=== PATIENT | male | born 1965 | race Caucasian/White ===

== ENCOUNTER 2018-07-02 06:35 | Inpatient (IN) ==
[2018-07-02] MEDS ORDERED: DUONEB (A & A) ONE (06:48)
--- NOTE | 2018-07-02 06:52 | PROVIDER DOCUMENTATION ---
HPI-Respiratory General - General Stated Complaint: sob/cp Time Seen by Provider: 07/02/18 06:46 Source: patient, EMS Allergies/Adverse Reactions: Patient Allergies Allergy/AdvReac Type Severity Reaction Status Date / Time tetracycline Allergy HIVES Verified 07/02/18 06:53 Home Medications: Home Medication List Medication Instructions Recorded Confirmed Last Taken Type Albuterol Sulfate [Proventil Hfa] 2 puff IH Q4HR PRN #1 hfa.aer.ad 12/28/17 07/02/18 03/27/18 09:30 Rx Aspirin 81 mg PO DAILY #30 chewtab 02/01/18 07/02/18 03/27/18 09:30 Rx Iron Carbonyl/Ascorbic Acid 1 ea PO BID #30 tab 02/01/18 07/02/18 03/27/18 09:30 Rx [Icar-C] Multivitamins/Minerals [Centrum 1 ea PO DAILY #30 tab 02/01/18 07/02/18 03/27/18 09:30 Rx Silver] Carvedilol [Coreg] 25 mg PO BID #60 tab 07/05/18 Unknown Rx Clopidogrel Bisulfate [Plavix] 75 mg PO DAILY #30 tab 07/05/18 Unknown Rx Dicyclomine [Bentyl] 10 mg PO TID PRN PRN #90 cap 07/05/18 Unknown Rx Furosemide [Lasix] 20 mg PO DAILY #30 tab 07/05/18 Unknown Rx Gabapentin [Neurontin] 600 mg PO BID #60 tab 07/05/18 Unknown Rx Losartan [Cozaar] 25 mg PO DAILY #30 tab 07/05/18 Unknown Rx Nicotine Patch [Nicoderm Patch] 21 mg TD DAILY PRN PRN #42 07/05/18 Unknown Rx patch.td24 Pantoprazole Sodium 40 mg PO DAILY #30 tablet.dr 07/05/18 Unknown Rx Prednisone 10 mg PO DAILY #7 tab.ds.pk 07/05/18 Unknown Rx ROSUVAstatin [Crestor] 40 mg PO QHS #30 tab 07/05/18 Unknown Rx Tamsulosin [Flomax] 0.4 mg PO DAILY #30 cap 07/05/18 Unknown Rx - History of Present Illness-Resp Nature of Presenting Problem: Presents to the with complaints of acute onset of SOB this morning when he woke up. He states that he just got discharged from [facility] yesterday for COPD exacberation and he stayed there for 7 days. He is still an everyday smoker. He takes NC 3L all the time and he takes Lasix. He endorses some chest pain associated with this episode. He called EMS this morning. They were on their way to [place] when he starting showing PVCs on the monitor and had a short run of Vtach they decided to stop here. Onset/Duration: reports: just prior to arrival Review of Systems - Adult - REVIEW OF SYSTEMS - ADULT Constitutional: reports: vero Past History - Adult - PAST MEDICAL HISTORY-ADULT Review of Records: reports: Old Records Reviewed, Medications Reviewed Major Childhood Illnesses: reports: denies history Cardiovascular: reports: CAD, HTN, hyperlipidemia, [place] Respiratory: reports: asthma, COPD Gastrointestinal: reports: denies history Obstetrical/Gynecological: reports: denies history Genitourinary: reports: kidney disease Musculoskeletal: reports: denies history Neurological: reports: CVA, Seizures/Epilepsy Psychiatric: reports: denies history Endocrine/Immune: reports: denies history Other Conditions: reports: denies history - PRIOR SURGERIES/PROCEDURES Surgical/Procedure History: reports: CABG, orthopedic (extremity) (right hand) - IMMUNIZATION STATUS Childhood Immunizations: See Nurse Assessment Flu Vaccine: See Nurse Assessment - FAMILY HISTORY Family History: reviewed, not pertinent Physical Exam-General - CONSTITUTIONAL General Appearance: moderate distress - EYES Eyes: PERRL/EOMI - HEAD, EARS, NOSE, MOUTH & THROAT HENMT: normocephalic/atraumatic - NECK Neck: non-tender, full range of motion, supple - RESPIRATORY Respiratory: chest non-tender, respiratory distress, decreased breath sounds (moderate throughout), crackles (bilateral bases) - CARDIOVASCULAR Cardiovascular: regular rate, rhythm, tachycardia - GASTROINTESTINAL (ABDOMEN) Abdominal Exam: normal bowel sounds, non tender, soft - MUSCULOSKELETAL Back Exam: normal inspection Extremity: normal range of motion, non-tender - SKIN Integumentary: pallor - NEUROLOGIC Neurologic: grossly normal - PSYCHIATRIC Psych/Mental Status: normal mood/affect, oriented x 3 Progress - PLAN OF CARE/RESULTS Progress/Plan/Lab Results: Laboratory Results - last 24 hr 07/02/18 07/02/18 07/02/18 07:05 07:30 07:30 WBC 12.42 H RBC 3.60 L Hgb 11.4 L Hct 35.0 L MCV 97.2 MCH 31.7 H MCHC 32.6 L RDW Std Deviation 15.8 H Plt Count 142 MPV 10.4 Immature Gran % (Auto) 2.3 H Neut % (Auto) 62.8 Lymph % (Auto) 20.1 L [place] % (Auto) 14.0 H Eos % (Auto) 0.6 Baso % (Auto) 0.2 Immature Gran # (Auto) 0.29 H Neut # (Auto) 7.78 H Lymph # (Auto) 2.50 [place] # (Auto) 1.74 H Eos # (Auto) 0.08 Baso # (Auto) 0.03 PT INR PTT (Actin FS) Specimen Type ARTERIAL Sample Site L RADIAL pH 7.46 H pCO2 38 pO2 98 HCO3 27.3 H Base Excess 3.1 H Oxyhemoglobin 95.1 ABG O2 Sat (Calculated) 14.8 L ABG O2 Saturation 99.0 ABG Carboxyhemoglobin 2.90 H ABG Methemoglobin 1.0 Mario Test YES A-a O2 Difference 83.0 Total Hemoglobin 11.0 L Lactate 1.00 Liter Flow 3.0 Blood Gas Modality CANNULA FiO2 % 32.0 Sodium 138 Potassium 4.9 Chloride 104 Carbon Dioxide 23 L Anion Gap 11 BUN 54 H Creatinine 1.5 H Estimated GFR/1.73 m2 49 BUN/Creatinine Ratio 36 Glucose 87 Calculated Osmolality 290 Calcium 8.5 L Magnesium Total Bilirubin 0.17 L AST 26 ALT 45 H Alkaline Phosphatase 49 Troponin T [id number]-[id number] Pept Total Protein 5.2 L Albumin 3.2 L Globulin 2.0 Albumin/Globulin Ratio 1.6 Urine Source Urine Color Urine Turbidity Urine pH Ur Specific [place] Urine Protein Ur Glucose (Stick) Ur Ketones (Stick) Urine Blood Urine Nitrite Urine Bilirubin Urobilinogen Dipstick Urine Leukocytes Urine WBC (Auto) Urine RBC (Auto) U Epithel Cells (Auto) Urine Bacteria (Auto) Urine Opiates Screen Ur Oxycodone Screen Ur Methadone, Qual Ur Barbiturates Screen Ur Phencyclidine Scrn Ur Amphetamines Screen U Benzodiazepines Scrn Urine Cocaine Screen U Cannabinoids Screen 07/02/18 07/02/18 07/02/18 07:30 07:30 07:30 WBC RBC Hgb Hct MCV MCH MCHC RDW Std Deviation Plt Count MPV Immature Gran % (Auto) Neut % (Auto) Lymph % (Auto) [place] % (Auto) Eos % (Auto) Baso % (Auto) Immature Gran # (Auto) Neut # (Auto) Lymph # (Auto) [place] # (Auto) Eos # (Auto) Baso # (Auto) PT 12.6 INR 0.88 PTT (Actin FS) 21.0 L Specimen Type Sample Site pH pCO2 pO2 HCO3 Base Excess Oxyhemoglobin ABG O2 Sat (Calculated) ABG O2 Saturation ABG Carboxyhemoglobin ABG Methemoglobin Mario Test A-a O2 Difference Total Hemoglobin Lactate Liter Flow Blood Gas Modality FiO2 % Sodium Potassium Chloride Carbon Dioxide Anion Gap BUN Creatinine Estimated GFR/1.73 m2 BUN/Creatinine Ratio Glucose Calculated Osmolality Calcium Magnesium Total Bilirubin AST ALT Alkaline Phosphatase Troponin T 0.020 Wdx-F-Drfhcetnepd Pept 4619 H Total Protein Albumin Globulin Albumin/Globulin Ratio Urine Source Urine Color Urine Turbidity Urine pH Ur Specific [place] Urine Protein Ur Glucose (Stick) Ur Ketones (Stick) Urine Blood Urine Nitrite Urine Bilirubin Urobilinogen Dipstick Urine Leukocytes Urine WBC (Auto) Urine RBC (Auto) U Epithel Cells (Auto) Urine Bacteria (Auto) Urine Opiates Screen Ur Oxycodone Screen Ur Methadone, Qual Ur Barbiturates Screen Ur Phencyclidine Scrn Ur Amphetamines Screen U Benzodiazepines Scrn Urine Cocaine Screen U Cannabinoids Screen 07/02/18 07/02/18 07/02/18 07:30 08:00 08:00 WBC RBC Hgb Hct MCV MCH MCHC RDW Std Deviation Plt Count MPV Immature Gran % (Auto) Neut % (Auto) Lymph % (Auto) [place] % (Auto) Eos % (Auto) Baso % (Auto) Immature Gran # (Auto) Neut # (Auto) Lymph # (Auto) [place] # (Auto) Eos # (Auto) Baso # (Auto) PT INR PTT (Actin FS) Specimen Type Sample Site pH pCO2 pO2 HCO3 Base Excess Oxyhemoglobin ABG O2 Sat (Calculated) ABG O2 Saturation ABG Carboxyhemoglobin ABG Methemoglobin Mario Test A-a O2 Difference Total Hemoglobin Lactate Liter Flow Blood Gas Modality FiO2 % Sodium Potassium Chloride Carbon Dioxide Anion Gap BUN Creatinine Estimated GFR/1.73 m2 BUN/Creatinine Ratio Glucose Calculated Osmolality Calcium Magnesium 2.1 Total Bilirubin AST ALT Alkaline Phosphatase Troponin T Xhf-J-Rhpyihggqfz Pept Total Protein Albumin Globulin Albumin/Globulin Ratio Urine Source CLEAN CATCH Urine Color YELLOW Urine Turbidity CLEAR Urine pH 5.5 Ur Specific [place] 1.017 Urine Protein NEGATIVE Ur Glucose (Stick) NEGATIVE Ur Ketones (Stick) NEGATIVE Urine Blood NEGATIVE Urine Nitrite NEGATIVE Urine Bilirubin NEGATIVE Urobilinogen Dipstick NORMAL Urine Leukocytes NEGATIVE Urine WBC (Auto) <10 Urine RBC (Auto) <10 U Epithel Cells (Auto) <10 Urine Bacteria (Auto) NEGATIVE Urine Opiates Screen PRESUMPTIVE POSITIVE A Ur Oxycodone Screen NONE DETECTED Ur Methadone, Qual NONE DETECTED Ur Barbiturates Screen NONE DETECTED Ur Phencyclidine Scrn NONE DETECTED Ur Amphetamines Screen PRESUMPTIVE POSITIVE A U Benzodiazepines Scrn NONE DETECTED Urine Cocaine Screen NONE DETECTED U Cannabinoids Screen NONE DETECTED Orders Category Date Time Status Admit - [facility] Routine AdmDCTranf 07/02/18 13:09 Active Activity - Up with Assistance ORDERED Care 07/02/18 13:09 Active Apply Mechanical Device [QM] ORDERED Care 07/02/18 13:09 Active DVT/PE Risk Assess/Protocol [QM] ORDERED Care 07/02/18 13:09 Active Daily Weights 0600 Care 07/02/18 13:09 Active Intake and Output-Strict ORDERED Care 07/02/18 13:09 Active Nursing- Assist w/ IS as order ORDERED Care 07/02/18 13:09 Active Nursing- MD Consult Request ROUTINE Care 07/02/18 13:09 Completed Old records/chart to unit .From other facility Care 07/02/18 13:09 Active Saline Loc DIRECTED Care 07/02/18 13:09 Active Saline Loc DIRECTED Care 07/02/18 13:09 Completed Turn, Cough and Deep Breathe Q4HR.AWAKE Care 07/02/18 13:09 Active Vital Signs Order Q 4-HR ASSESS Care 07/02/18 13:09 Active Weight on Admission ORDERED Care 07/02/18 13:09 Active Z-Document. for Tele Applied ORDERED Care 07/02/18 13:09 Completed Physician/Provider Consults Routine Cons 07/02/18 13:09 Ordered Heart Healthy Diet Diet 07/02/18 09:06 Active CHEST-PORTABLE [RAD] Routine Exams 07/03/18 06:00 Ordered CHEST-PORTABLE [RAD] Stat Exams 07/02/18 07:50 Completed ABG [RESP] Routine Lab 07/02/18 07:05 Completed CBC WITH DIFF [HEME] Routine Lab 07/03/18 06:00 Ordered CBC WITH ELECTRONIC DIFF [HEME] Stat Lab 07/02/18 07:30 Completed COMPREHENSIVE METABOLIC PANEL [CHEM] Routine Lab 07/03/18 06:00 Ordered COMPREHENSIVE METABOLIC PANEL [CHEM] Stat Lab 07/02/18 07:30 Completed PRO B-NATRIURETIC PEPTIDE Routine Lab 07/03/18 06:00 Ordered PRO B-NATRIURETIC PEPTIDE Stat Lab 07/02/18 07:30 Completed PROTIME WITH INR [COAG] Stat Lab 07/02/18 07:30 Completed PTT [COAG] Stat Lab 07/02/18 07:30 Completed SPUTUM CULTURE WITH GRAM STAIN [RM] Routine Lab 07/02/18 13:09 Uncollected T4 Routine Lab 07/02/18 15:21 Completed TROPONIN T Lab 07/02/18 15:21 Completed TROPONIN T Lab 07/02/18 20:56 Completed TROPONIN T Stat Lab 07/02/18 07:30 Completed TSH Routine Lab 07/02/18 15:21 Completed URINALYSIS W/POSS RFLX CULT [URINALYSIS] Stat Lab 07/02/18 08:00 Completed URINE DRUG SCREEN Stat Lab 07/02/18 08:00 Completed VITAMIN B12 Routine Lab 07/02/18 15:21 Completed Acetaminophen [Tylenol] Med 07/02/18 13:09 Active 650 mg PO Q6H PRN PRN Albuterol 2.5MG/Ipratrop 0.5MG [Duoneb (A & A)] Med 07/02/18 13:09 Active 3 ml INH Q2H PRN PRN Albuterol 2.5MG/Ipratrop 0.5MG [Duoneb (A & A)] Med 07/02/18 15:30 Active 3 ml INH RTQ4H Albuterol 2.5MG/Ipratrop 0.5MG [Duoneb (A & A)] Med 07/02/18 06:48 Discontinued 9 ml .ROUTE .STK-MED ONE Albuterol 2.5MG/Ipratrop 0.5MG [Duoneb (A & A)] Med 07/02/18 06:54 Discontinued 9 ml INH NOW ONE Aspirin Med 07/03/18 09:00 Active 81 mg PO DAILY Budesonide [Pulmicort] Med 07/02/18 06:54 Discontinued 0.5 mg INH NOW ONE Carvedilol [Coreg] Med 07/02/18 21:00 Active 25 mg PO BID Clopidogrel [Plavix] Med 07/03/18 09:00 Active 75 mg PO DAILY Furosemide [Lasix] Med 07/02/18 07:04 Discontinued 60 mg IV NOW ONE Gabapentin [Neurontin] Med 07/02/18 21:00 Active 300 mg PO BID Isosorbide Mononitrate E.r. [Imdur] Med 07/03/18 09:00 Active 60 mg PO DAILY Levofloxacin 500 mg/D5w [Levaquin 500 mg/D5w] Med 07/02/18 13:09 Active 500 mg in 100 ml IV Q24H Methylprednisolone Sod Succ [Solu-Medrol] Med 07/02/18 06:54 Discontinued 125 mg IV NOW ONE Methylprednisolone Sod Succ [Solu-Medrol] Med 07/02/18 14:00 Active 40 mg IV Q8H Ondansetron [Zofran] Med 07/02/18 13:09 Active 4 mg IV Q4H PRN PRN ROSUVAstatin [Crestor] Med 07/03/18 09:00 Active 40 mg PO DAILY Aerosol Treatments Routine Ot 07/02/18 06:55 Completed Aerosol Treatments Routine Ot 07/02/18 13:09 Completed Aerosol Treatments Stat Ot 07/02/18 06:55 Completed Aerosol Treatments Stat Ot 07/02/18 13:09 Completed Incentive Spirometer Q4HR.AWAKE Ot 07/02/18 17:00 Completed Incentive Spirometer Q4HR.AWAKE Ot 07/02/18 21:00 Completed Incentive Spirometer Q4HR.AWAKE Ot 07/03/18 01:00 Completed Incentive Spirometer Q4HR.AWAKE Ot 07/03/18 05:00 Completed Incentive Spirometer Q4HR.AWAKE Ot 07/03/18 09:00 Completed Incentive Spirometer Q4HR.AWAKE Ot 07/03/18 13:00 Completed Oxygen Device Routine Ot 07/02/18 13:09 Completed Peak Flow BID Ot 07/02/18 21:00 Completed Peak Flow BID Ot 07/03/18 09:00 Completed Telemetry [OM.EQ] Routine Oth 07/02/18 13:09 Active EKG [EKG] Stat Ther 07/02/18 06:38 Draft Transfer/Admit Order [TRANSFER] Routine Transfer 07/02/18 11:54 Completed Result Diagrams: 07/04/18 10:00 07/03/18 06:41 - EKG 1 Time of EKG reading by physician:: 06:41 EKG Read and Signed by:: Luna Kirk EKG Interpretation (*Must complete 3 of following elements*): Abnormal Rate: 83 Rhythm: NSR QRS: PVC's ST Wave: non-specific ST changes - CHANGE OF SHIFT REPORT (ED Provider) 1 Report Given and Care Transferred to:: Dr Falcon Time of Transfer: 07:00 Items Pending: Labs, XRAY Results, Other (patient reevaluation) Departure - Departure Date of Disposition Decision: 07/02/18 Time of Disposition Decision: 06:00 DIAGNOSIS: COPD exacerbation Disposition: ADMITTED INPATIENT 09 Certified Medical Emergency: Emergent Condition: Stable - Critical Care Note This patient required my direct & personal management of CC.: Yes Total Time (mins): 35 Critical Care Statement: This patient required my direct personal management to treat or rule out processes, the absence of which, could potentiallly result in sudden, clinically significant life or limb threatening deterioration. Attestation - Physician/ RANDY Attestation Patient care was provided by Advanced Practice Provider:: No The physician spent face to face time with patient:: Yes Advanced Practice Provider documentation review:: Supervising physician onsite and consulted in the evaluation and care of this patient. The physician did have a face to face encounter with the patient.
[2018-07-02] MEDS ORDERED: SOLU-MEDROL IV ONE (06:54)
[2018-07-02] MEDS ORDERED: DUONEB (A & A) INH ONE (06:54)
[2018-07-02] MEDS ORDERED: PULMICORT INH ONE (06:54)
--- NOTE | 2018-07-02 06:56 | EKG Report ---
Test Performed on : 07/02/2018 06:40:51 AM Test Reason : CP Blood Pressure : / mmHG Vent. Rate : 083 BPM Atrial Rate : 083 BPM P-R Int : 136 ms QRS Dur : 108 ms QT Int : 390 ms P-R-T Axes : 088 034 077 degrees QTc Int : 458 ms Sinus rhythm. with occasional premature ventricular complexes. Cannot rule out Inferior infarct , age undetermined Abnormal ECG When compared with ECG of 15-APR-2018 13:27, premature ventricular complexes. are now present Minimal criteria for Inferior infarct are now present T wave inversion no longer evident in Inferior leads Nonspecific T wave abnormality has replaced inverted T waves in Lateral leads Unconfirmed Result
[2018-07-02] MEDS ORDERED: LASIX IV ONE (07:04)
[2018-07-02 07:15] LABS: ALLEN TEST YES; BE 3.1 mmoll (-3.0-3.0); BLOOD TYPE ARTERIAL; HCO3-(ACT) 27.3 mmoll (20.0-26.0); O2(CT) 14.8 mL/dL (15.0-23.0); O2HB 95.1 % (95.0-99.0); PCO2(98.6) 38 mmHg (35-45); PO2(98.6) 98 mmHg (60-100); SAMPLE BLOOD; pH(98.6) 7.46 (7.35-7.45)
[2018-07-02 07:19] LABS: MODALITY CANNULA
[2018-07-02 07:52] LABS: BASO# 0.03 X1000 (0.0-0.2); BASO% 0.2 % (0.0-0.8); EOS# 0.08 X1000 (0.0-0.7); EOS% 0.6 % (0.0-10.0); HEMOGLOBIN 11.4 g/dL (14.0-18.0); IMM GRAN# 0.29 X1000 (0.0-0.04); IMM GRAN% 2.3 % (0.0-0.5); LYMPH% 20.1 % (20.5-51.1); MCH 31.7 PG (27-31); MCHC 32.6 g/dL (33-37); MCV 97.2 FL (81-99); MONO# 1.74 X1000 (0.11-0.59); MPV 10.4 FL (7.4-10.4); NEUT# 7.78 X1000 (1.4-6.5); NEUT% 62.8 % (42.2-75.2); PLT 142 X1000 (130-400); RDW 15.8 % (11.5-14.5); WBC 12.42 X1000 (4.8-10.8)
[2018-07-02 08:02] LABS: INR 0.88; PROTIME 12.6 Seconds (11.0-16.0)
--- NOTE | 2018-07-02 08:17 | Diag Imaging Result Doc PS360 ---
CHEST-PORTABLE - 07/02/2018 INDICATION: resp fail COMPARISON: 04/15/2018 FINDINGS: Stable sternotomy changes and pacemaker. The lungs are clear. Heart size is normal. No pneumothorax or pleural effusion. IMPRESSION: Negative exam. Electronically signed by Clifford Elizondo 07/02/2018 8:15 AM
[2018-07-02 08:18] LABS: URINE SOURCE CLEAN CATCH
[2018-07-02 08:21] LABS: BILIRUBIN URINE NEGATIVE (NEGATIVE); BLOOD URINE NEGATIVE (NEGATIVE); COLOR YELLOW; GLUCOSE URINE NEGATIVE (NEGATIVE); KETONE URINE NEGATIVE (NEGATIVE); LEUKOCYTES URINE NEGATIVE (NEGATIVE); NITRITE URINE NEGATIVE (NEGATIVE); PH URINE 5.5; PROTEIN URINE NEGATIVE (NEGATIVE); SP GRAVITY URINE 1.017; TURBIDITY URINE CLEAR (CLEAR); UROBILINOGEN URINE NORMAL (NORMAL)
[2018-07-02 08:22] LABS: UR EPITHELIAL CELLS <10 /HPF (<10); URINE BACTERIA NEGATIVE /HPF; URINE RBC <10 /HPF (<10); URINE WBC <10 /HPF (<10)
[2018-07-02 08:32] LABS: ALB/GLOB RATIO 1.6; ALBUMIN 3.2 g/dL (3.5-5.0); CALCIUM 8.5 mg/dL (8.8-10.2); CREATININE 1.5 mg/dL (0.7-1.2); POTASSIUM 4.9 mmol/L (3.5-5.1); TOTAL BILIRUBIN 0.17 mg/dL (0.20-1.00); TOTAL PROTEIN 5.2 g/dL (6.3-8.3)
[2018-07-02 08:32] LABS: UR AMPHETAMINES QUAL PRESUMPTIVE POSITIVE (NONE DETECT); UR BARBITUATES QUAL NONE DETECTED (NONE DETECT); UR BENZODIAZEPIN QUAL NONE DETECTED (NONE DETECT); UR CANNABINOIDS QUAL NONE DETECTED (NONE DETECT); UR COCAINE QUAL NONE DETECTED (NONE DETECT); UR METHADONE QUAL NONE DETECTED (NONE DETECT); UR OPIATES QUAL PRESUMPTIVE POSITIVE (NONE DETECT); UR OXYCODONE QUAL NONE DETECTED (NONE DETECT); UR PCP QUAL NONE DETECTED (NONE DETECT)
[2018-07-02] MEDS ORDERED: DUONEB (A & A) INH PRN (13:09)
--- NOTE | 2018-07-02 14:41 | HISTORY AND PHYSICAL ---
HISTORY OF PRESENT ILLNESS: Mr. Nash presented on 07/02/2018. He had just gone to [facility] when he presented for the same shortness of breath. He has congestive heart failure with an ejection fraction of 20%, ischemic cardiomyopathy and underlying COPD with home O2 dependent, history of hypertension, history of hyperlipidemia. He states that since he left [facility] he still is very short of breath. He lives in a hotel in [place]. I do not think he has any healthcare at this time. No primary care physician. He denies fever or chills, just mainly shortness of breath, increased orthopnea, paroxysmal nocturnal dyspnea. He states he occasionally gets some chest tightness, but not having any at present time. PAST MEDICAL HISTORY: 1. Severe COPD with chronic hypoxemia, chronic hypercapnia, on home O2. 2. Hyperlipidemia. 3. Coronary artery disease. He had a recent heart catheterization here on 02/13/2018. The patient has essentially stable coronary arteries from previous catheterization. He has a known patent oblique marginal versus possible ramus branch. He has an occluded left anterior descending, which fills well via the WINTER. He essentially has an occluded circumflex after the 1st obtuse marginal. His right coronary was known to be nondominant, very small and severely diseased, so they opted to treat him medically. He has ejection fraction estimated by echo to be about 20% with global hypokinesis. 4. Hypertension. 5. Polyneuropathy in his feet. PAST SURGICAL HISTORY: He has had coronary artery bypass grafting in the past, right hand surgery, left knee surgery. ALLERGIES: Tetracycline which causes a rash. SOCIAL HISTORY: He was in [facility] for 10 years. When he got discharged, he started having more of these problems. Recently developed polyneuropathy in his feet as well. Denies history of alcohol or illicit drugs. FAMILY HISTORY: No history of coronary artery disease, but mother apparently had a history of heart trouble. Father had COPD and congestive heart failure as well. REVIEW OF SYSTEMS: General: He has had no weight gain or loss, no fever or chills. HEENT: Unremarkable. Respiratory: As above. Increased work of breathing, increased orthopnea, increased paroxysmal nocturnal dyspnea. Cardiovascular: He still has occasional pressure or tightness in his chest, but he has had a recent catheterization and he is going to need to be treated medically. 1. Hypertension, aware. 2. COPD with chronic O2. This is CO2 exacerbation. Combination of COPD and left ventricular systolic dysfunction or congestive heart failure. 3. Chronic kidney disease I think is stable. 4. Hyperlipidemia. 5. He apparently is still smoking and he denies any history of alcohol. However, he did use what he called shake and bake, which was similar to meth and I think he did reported he used heroin, too for a while. PHYSICAL EXAMINATION: VITALS: Afebrile, pulse 76, respirations 19, blood pressure 114/98. EYES: Pupils are equal. NECK: No distended neck veins that I can appreciate right now, but I think his CMP is above 10 cm water pressure from right atrium. No cervical or supraclavicular adenopathy. LUNGS: Decreased breath sounds both bases. Mild expiratory wheezing. Prolonged expiratory phase. CARDIOVASCULAR: Regular rhythm and rate without murmur or S3. PMI nondisplaced. ABDOMEN: Soft, nontender. I do not appreciate pedal edema at this time. LABORATORY: White count 12,420, hematocrit is 35, platelet count is 142,000. Sodium 138, potassium 4.9, chloride 104, BUN 54, and creatinine 1.5. Looking back at his creatinine, this is about baseline for him. He has had creatinine much higher, so I think his creatinine is probably at baseline. He has chronic kidney disease. HOME MEDICATIONS: He is on Proventil 2 puffs q.4 hours, Norvasc 5 mg b.i.d., amoxicillin 875 mg b.i.d., Coreg 25 mg b.i.d., Plavix 75 mg a day, Lasix 40 mg a day, Neurontin 300 mg b.i.d., Icar C 1 b.i.d., isosorbide mononitrate 60 mg a day, multivitamin 1 a day, naproxen 550 mg b.i.d., pantoprazole 40 mg b.i.d., prednisone 10 mg a day, Crestor 40 mg daily, Carafate 1 g q.6 hours, Flomax 0.4 mg daily. ASSESSMENT AND PLAN: 1. I think a combination of COPD and his congestive heart failure with some mild pulmonary venous hypertension. I think we need to continue to see if we can diurese a little bit. His chest x- ray was negative. No infiltrates. Heart size is normal. There is no pneumothorax at this time. We will continue bronchodilators, steroid inhaler, supplementary O2. Give him some guaifenesin to thin out the mucous. I do not see infection, but we can treat him for bronchitic organisms. 2. Chronic obstructive pulmonary disease exacerbation, chronic hypoxemia, hypercapnia. Continue supplemental O2, bronchodilators and steroid inhalers. 3. History of hypertension, aware. Continue present medication. 4. Peripheral neuropathy in his lower extremities, mainly involving his feet. 5. Chronic kidney disease which is stable. 6. Hyperlipidemia. 7. Chronic tobacco use. cc: Mario Gallardo MD
--- NOTE | 2018-07-02 15:17 | EKG Report ---
Test Performed on : 07/02/2018 3:07:02 PM Test Reason : chest pain Blood Pressure : / mmHG Vent. Rate : 107 BPM Atrial Rate : 107 BPM P-R Int : 134 ms QRS Dur : 096 ms QT Int : 336 ms P-R-T Axes : 074 006 106 degrees QTc Int : 448 ms Sinus tachycardia. with occasional premature ventricular complexes. Inferior infarct (cited on or before 02-JUL-2018) ST & T wave abnormality, consider lateral ischemia Abnormal ECG When compared with ECG of 02-JUL-2018 06:40, (Unconfirmed) No significant change was found Unconfirmed Result
[2018-07-02] MEDS: DUONEB (A & A) INH SCH ×3 (16:19→22:55)
[2018-07-02 16:30] LABS: TSH 0.28 uIUmL (0.27-4.20)
[2018-07-02 16:41] LABS: T4 6.66 ug/dL (4.60-12.00)
--- NOTE | 2018-07-02 18:08 | CARDIOLOGY CONSULTATION ---
DATE: 07/02/2018 REQUESTING PHYSICIAN: The hospitalist service. PRIMARY STICK FEEDER: Dr. Chase. HISTORY: Mr. Nash is a 52-year-old male, who apparently was just discharged a day ago or so from [facility] after staying there for about a week. His chief complaint was shortness of breath just walking a very short distance. The patient said that he had called the ambulance due to chest discomfort and dyspnea. The ambulance picked him up, and they were going to taken to [place]; however, en route, they noted ventricular arrhythmia and they decided to make a stop at [facility] and thus the patient has been admitted through our emergency department. The patient states that compared to how he felt the first day he was admitted to [facility] he is somewhat better, but not a whole lot better. His chest x-ray in the ER here shows no acute abnormalities. EKG shows sinus rhythm with inferior scar PVC. Blood work shows a proBNP level of 4619 pg/mL. BUN is 54, creatinine 1.5. White cell count 12,420, hemoglobin 11.4 g percent. PAST HISTORY: Positive for CHF systolic, ischemic cardiomyopathy. Recent heart catheterization done about 5 months ago showed patent mammary artery graft to LAD and occlusion of all the other vessels. He has a left main stenosis that supplies a circumflex system that is only comprised of 2 lateral vessels that appeared to be small. Ejection fraction is low. He has COPD, hypertension, dyslipidemia, chronic kidney disease, peripheral arterial disease, previous stroke, and history of GI bleeding. SURGICAL HISTORY: He had coronary bypass in 2002, mammary artery to LAD. He has had a stent to LAD. Circumflex has been occluded. He has an AICD implantation. Knee replacement, right hand surgery. SOCIAL HISTORY: He is . Disabled. He lives in a hotel in [place]. He is on disability. He has children. ALLERGIC: Tetracycline. HOME MEDICATIONS: Listed include albuterol, amoxicillin, atorvastatin, carvedilol, clopidogrel, furosemide, gabapentin, Naprosyn, Protonix, prednisone, rosuvastatin, sucralfate, tamsulosin. The patient does have tremendous financial constraints to purchase his medications. He is on home oxygen. REVIEW OF SYSTEMS: Other than what I have related is noncontributory. PHYSICAL EXAMINATION: Vital signs: Blood pressure is 93/64, pulse 105, temperature 98.1 degrees, respirations 18. General: Awake, alert. Chronically ill, in no distress. HEENT: Unremarkable. Chest: Diffusely diminished breath sounds with some rhonchi. Heart: Heart sounds are regular with some PVCs. No gallop or murmur. Abdomen: Soft. Extremities: Showed trace edema. Neurological: Follows commands. Moves 4 extremities. DIAGNOSTIC STUDIES: BUN 54, creatinine 1.5. Hemoglobin 11.4. Magnesium 2.1. Troponin 0.020. His urine toxicology screen drug screen shows opiates and amphetamines. IMPRESSION: 1. Patient with chest discomfort/dyspnea to minimal effort upon presentation. This is probably just his out of control systolic heart failure with inadequate medical therapy. He has been noncompliant. He has financial issues and can not afford his medications. 2. Severe chronic obstructive pulmonary disease (COPD). 3. Home oxygen dependent. 4. Previous bypass with progression of disease, ischemic cardiomyopathy. 5. Possible drug abuse, including opiates, nicotine and amphetamines. RECOMMENDATIONS: Patient is strongly encouraged to quit smoking and abstain from illicit drugs. He will be placed back on all of his medications. Once he is found euvolemic, he may be discharged to be followed by his primary physician. cc: Dorian Randhawa MD MTDD
[2018-07-02] MEDS: SOLU-MEDROL IV SCH ×3 (18:51→22:02)
[2018-07-02] MEDS: PULMICORT INH SCH (19:40)
[2018-07-02] MEDS: LEVAQUIN 500 MG/D5W 500 MG/100 ML IVPB IV SCH (20:06)
[2018-07-02] MEDS: COREG PO SCH (20:07)
[2018-07-02] MEDS: MUCINEX PO SCH (20:07)
[2018-07-02] MEDS: NEURONTIN PO SCH (20:07)
--- NOTE | 2018-07-02 22:50 | PULMONOLOGY CONSULTATION ---
DATE: 07/02/2018 REQUESTING PHYSICIAN: Mario Gallardo MD REASON FOR CONSULTATION: Chronic obstructive pulmonary disease exacerbation just discharged from [facility]. HISTORY OF PRESENT ILLNESS: Mr. Nash is a 52-year-old white male with a greater than 50 pack- year history for tobacco, severe COPD, severe coronary artery disease with ischemic cardiomyopathy, with ongoing tobacco use, who was recently discharged from [facility] with exacerbation of COPD/CHF by his report. After discharge home he did resume smoking. Drug screen in the emergency room was positive for amphetamines, which he denies. This morning he became short of breath and called 911 and was in route to [facility] when he developed PVCs and was diverted to this hospital. PAST MEDICAL HISTORY: 1. Severe chronic obstructive pulmonary disease. 2. Ischemic cardiomyopathy with ejection fraction of 20%. 3. Coronary artery disease status post bypass grafting with most recent cardiac catheterization 5 months ago revealing a patent mammary artery to the LAD with occlusion of all other vessels. 4. Dyslipidemia. 5. Chronic kidney disease. 6. Peripheral arterial disease. 7. CVA with residual left-sided weakness. 8. Status post AICD. 9. Status post knee replacement. 10. Polyneuropathy affecting his feet. SOCIAL HISTORY: Previously spent time in nursing home. Currently smoking greater than 1 pack per day. He reports with his myocardial infarction he stopped smoking for approximately 3 years but restarted smoking "due to a woman." Nursing intake notes that he used recreational drugs but none in the last 10 years. REVIEW OF SYSTEMS: Notable for chest tightness, dyspnea. PHYSICAL EXAMINATION: General: Reveals a chronically ill-appearing male who appears older than his stated age of 52. Vital Signs: BP 126/96, heart rate 74, respiratory rate 20, oxygen saturation 100% on 3 L per nasal cannula. HEENT: Pupils are equal and reactive. Oropharynx is clear. Neck: Supple. Chest: Reveals diminished breath sounds bilaterally with prolonged expiratory phase. Cardiac Exam: S1, S2. Abdomen: Soft and without hepatosplenomegaly. Extremities: Reveal trace to 1+ peripheral edema. LABORATORIES: Arterial blood gas reveals a pH of 7.46, pCO2 of 38, pO2 of 98 with a carboxyhemoglobin level of 3.9. White blood count 12.42, hemoglobin 11.4, platelet count 142,000. Toxicology positive for opiates and amphetamines. IMAGING: Chest x-ray reveals no evidence of acute disease. IMPRESSION: A 52-year-old with severe chronic obstructive pulmonary disease, severe coronary artery disease with ischemic cardiomyopathy, ongoing tobacco use, possible stimulant use, although he denies taking amphetamines or any other illicit drugs. RECOMMENDATIONS: 1. Continue oxygen at the time of discharge. 2. Continue bronchodilators at the time of discharge. He currently has a Proventil inhaler. Would recommend discharging patient on albuterol and Atrovent nebulizers to be used 4 times a day as necessary. 3. Initiate steroid taper at the time of discharge. 4. Strongly encourage patient to discontinue tobacco use, which may have contributed to this recurrent admission. 5. Encourage patient not to use illicit drugs. He currently denies use of illicit drugs, but amphetamines or any stimulant medications would likely cause cardiac decompensation with rapid return to the hospital. cc: Mazin Juárez MD
[2018-07-03] MEDS: DUONEB (A & A) INH SCH ×6 (03:33→23:20)
[2018-07-03] MEDS: SOLU-MEDROL IV SCH (04:43)
[2018-07-03 07:32] LABS: ALB/GLOB RATIO 1.8; CALCIUM 8.4 mg/dL (8.8-10.2); CREATININE 1.6 mg/dL (0.7-1.2); TOTAL BILIRUBIN 0.19 mg/dL (0.20-1.00); TOTAL PROTEIN 4.7 g/dL (6.3-8.3)
[2018-07-03 07:33] LABS: BASO# 0.01 X1000 (0.0-0.2); BASO% 0.1 % (0.0-0.8); HEMOGLOBIN 11.4 g/dL (14.0-18.0); IMM GRAN# 0.25 X1000 (0.0-0.04); LYMPH# 0.63 X1000 (1.2-3.4); LYMPH% 5.1 % (20.5-51.1); MCH 31.8 PG (27-31); MCHC 32.6 g/dL (33-37); MCV 97.8 FL (81-99); MONO# 1.97 X1000 (0.11-0.59); MONO% 15.9 % (1.7-9.3); MPV 10.1 FL (7.4-10.4); NEUT# 9.53 X1000 (1.4-6.5); NEUT% 76.9 % (42.2-75.2); PLT 142 X1000 (130-400); RBC 3.58 XMIL (4.7-6.1); RDW 16.3 % (11.5-14.5); WBC 12.39 X1000 (4.8-10.8)
[2018-07-03] MEDS: PULMICORT INH SCH ×2 (07:35→19:42)
--- NOTE | 2018-07-03 07:37 | Diag Imaging Result Doc PS360 ---
EXAM: CHEST-PORTABLE INDICATION: short of breath TECHNIQUE: One view COMPARISON: 07/02/2018 FINDINGS: The lungs are grossly clear. No new consolidation is identified. Cardiac silhouette is stable. IMPRESSION: Stable chest with no definite acute pathology. Electronically signed by Gilbert Bowser 07/03/2018 7:35 AM
[2018-07-03 07:46] LABS: BANDS 3 % (0-1); LYMPHS 5 % (21-51); MONO 16 % (1-9); SEGS 76 % (42-75)
[2018-07-03] MEDS: CRESTOR PO SCH (08:06)
[2018-07-03] MEDS: ASPIRIN PO SCH (08:06)
[2018-07-03] MEDS: MUCINEX PO SCH ×2 (08:06→20:34)
[2018-07-03] MEDS: PLAVIX PO SCH (08:06)
[2018-07-03] MEDS: IMDUR PO SCH (08:06)
[2018-07-03] MEDS: NEURONTIN PO SCH ×2 (08:06→20:35)
[2018-07-03] MEDS: COREG PO SCH ×2 (08:06→20:34)
[2018-07-03] MEDS: PREDNISONE PO SCH (08:29)
--- NOTE | 2018-07-03 09:24 | ECHO REPORT ---
ORDER DATE: 07/02/2018 MEASUREMENTS: Left ventricular end-diastolic 5.7, septal thickness 1.2, posterior wall thickness 1.2, aortic root 3.7, left atrium 3.2. SUMMARY: 1. Fair quality study. 2. Intravenous echo contrast agent Definity utilized to enhance endocardial definition. 3. Aortic valve is trileaflet and opens normally on 2-dimensional images. Peak gradient across aortic valve is less than 10 mmHg. Mitral, tricuspid and pulmonic valves are without evidence of structural abnormality with trace tricuspid regurgitation and mild pulmonic insufficiency. The aortic root is normal size. 4. Normal left ventricular chamber size with mild concentric left hypertrophy is demonstrated. Estimated left ventricular ejection fraction approximately 40% in the setting of global hypokinesis. Left atrium, right atrium, right ventricle are normal in size with grossly preserved right ventricular systolic function. Pacemaker lead appears present in the right ventricle. 5. No pericardial effusion. 6. Appearance of inferior vena cava suggests normal central venous pressure. cc: Angel Chase MD
[2018-07-03] MEDS ORDERED: LASIX IV ONE (13:19)
--- NOTE | 2018-07-03 13:56 | PROGRESS NOTE ---
DATE: 07/03/2018 INTERVAL HISTORY: Patient with no dyspnea at rest. Still reports dyspnea and fatigue with exertion. Excellent O2 saturations. He reports compliance with some of his medications prior to admission but denies having seen a doctor in quite some time, so I am uncertain where he would have been getting his prescriptions from. No fever, chills, chest pain, diaphoresis. REVIEW OF SYSTEMS: A 12 point review of systems is negative except as per interval history. LABS: WBC 12.39, hemoglobin 11.4, hematocrit 35.0, platelets 142,000. Sodium 134, potassium 5, BUN 51, creatinine 1.6, glucose 143. BNP 4032. Urine drug screen, opiates and amphetamines. VITAL SIGNS: T-max 98.3 degrees, pulse 94, respirations 18, blood pressure of 123/79, O2 saturation 99% on 1 L by nasal cannula. PHYSICAL EXAMINATION: General: No acute distress. Vitals: As above. HEENT: Normocephalic, atraumatic. Moist mucous membranes. No cervical adenopathy. Cardiovascular: Regular rate and rhythm. No murmurs noted. ICD in the left upper chest. Pulmonary: Minimal bibasilar crackles, slightly decreased breath sounds throughout but otherwise clear to auscultation bilaterally. Abdomen: Soft, nontender, nondistended. Bowel sounds positive. Extremities: Peripheral pulses intact. No clubbing, cyanosis, or edema. Neurologic: Cranial nerves grossly intact. No focal deficits identified. Psychiatric: Normal mood and affect. Awake, alert, and oriented x3. Skin: No new rashes or lesions identified. ASSESSMENT AND PLAN: 1. Dyspnea: Likely a combination of minimal decompensation of both his congestive heart failure and chronic obstructive pulmonary disease. Symptoms are somewhat improved. Oxygen requirements, essentially none at this point. We will wean steroids down. Continue diuresis for one more day. Suspect he will be able to be discharged tomorrow. The importance of compliance with medication was emphasized. We will restart the patient on losartan. The patient states he was previously on lisinopril, was taken off because of cough, and never restarted anything else. 2. Possible viral upper respiratory tract infection, treating symptomatically. 3. Obstructive sleep apnea. Patient evaluated for CPAP when he can. 4. Coronary artery disease. Continue home aspirin and Plavix. 5. Hyperlipidemia. Continue statin. 6. Hypertension, stable on current medication. Adding losartan as above. 7. Chronic kidney disease 3. Creatinine stable. 8. Tobacco abuse. Patient strongly counseled on cessation. 9. Hyponatremia, mild. We will monitor. [facility] CENTERDaniel
[2018-07-03] MEDS: TYLENOL PO PRN ×2 (14:08→23:57)
[2018-07-03] MEDS: ZOFRAN IV PRN ×2 (16:42→20:34)
[2018-07-03] MEDS: LEVAQUIN 500 MG/D5W 500 MG/100 ML IVPB IV SCH (20:45)
[2018-07-04] MEDS: DUONEB (A & A) INH SCH ×6 (03:34→23:21)
[2018-07-04] MEDS: ZOFRAN IV PRN ×3 (04:26→21:42)
[2018-07-04] MEDS: PULMICORT INH SCH ×2 (07:59→19:27)
[2018-07-04] MEDS: MUCINEX PO SCH ×2 (08:58→21:42)
[2018-07-04] MEDS: NEURONTIN PO SCH ×2 (08:58→21:42)
[2018-07-04] MEDS: COREG PO SCH ×3 (08:59→21:45)
[2018-07-04] MEDS: TYLENOL PO PRN ×3 (08:59→22:56)
[2018-07-04] MEDS: CRESTOR PO SCH (08:59)
[2018-07-04] MEDS: PLAVIX PO SCH (08:59)
[2018-07-04] MEDS: PREDNISONE PO SCH (08:59)
[2018-07-04] MEDS: COZAAR PO SCH (08:59)
[2018-07-04] MEDS: IMDUR PO SCH (08:59)
[2018-07-04] MEDS: ASPIRIN PO SCH (08:59)
[2018-07-04 10:21] LABS: BASO# 0.02 X1000 (0.0-0.2); BASO% 0.3 % (0.0-0.8); HEMATOCRIT 36.2 % (42.0-52.0); HEMOGLOBIN 11.9 g/dL (14.0-18.0); IMM GRAN# 0.38 X1000 (0.0-0.04); IMM GRAN% 6.4 % (0.0-0.5); LYMPH# 0.64 X1000 (1.2-3.4); LYMPH% 10.8 % (20.5-51.1); MCH 32.3 PG (27-31); MCHC 32.9 g/dL (33-37); MCV 98.4 FL (81-99); MONO# 0.74 X1000 (0.11-0.59); MONO% 12.5 % (1.7-9.3); MPV 9.7 FL (7.4-10.4); NEUT# 4.12 X1000 (1.4-6.5); PLT 98 X1000 (130-400); RBC 3.68 XMIL (4.7-6.1); RDW 16.6 % (11.5-14.5)
[2018-07-04 10:40] LABS: BANDS 14 % (0-1); LYMPHS 12 % (21-51); MONO 2 % (1-9); NRBC 1 % (0-0); SEGS 62 % (42-75)
--- NOTE | 2018-07-04 11:04 | PROGRESS NOTE ---
DATE: 07/04/2018 SUBJECTIVE: This morning, Mr. Nash is complaining of some abdominal cramping and multiple loose stools early this morning. He does report some very minimal amount of bright red blood after wiping. He denies any nausea or vomiting and no fever. His breathing is improving subtly, O2 saturation noted to be 98% on room air after he went to the bathroom. Otherwise, there were no acute events overnight. He is resting in bed comfortably without distress noted. OBJECTIVE: PHYSICAL EXAMINATION: VITAL SIGNS: Blood pressure is 117/72, heart rate is 94, respiratory rate is 18, O2 saturation 98% on room air, temperature is 98.2. GENERAL: Chronically ill and disheveled-appearing 52-year-old male lying in the hospital bed in no acute distress. HEENT: Head is atraumatic and normocephalic. His pupils are equal, round, and reactive to light. Mucous membranes moist. NECK: Trachea is midline. Neck supple. There is no cervical lymphadenopathy. CHEST: Clear to auscultation with decreased breath sounds bilaterally. CARDIOVASCULAR: Regular rate and rhythm. No murmurs noted. ICD to the left upper chest. ABDOMEN: Soft, nondistended. Bowel sounds active. EXTREMITIES: Peripheral pulses 1+. No clubbing, cyanosis, or edema. NEUROLOGIC: No focal deficits noted. Cranial nerves grossly intact. SKIN: No new rashes or lesions identified. ASSESSMENT AND PLAN: 1. Dyspnea: Improving daily, likely combination of congestive heart failure and chronic obstructive pulmonary disease. He is actually doing quite well without oxygen. Will continue steroid weaning and diuretics. He appears to be doing well on his losartan. 2. Coronary artery disease, stable, continue aspirin and Plavix. 3. Obstructive sleep apnea, stable. However, he needs to be evaluated outpatient with a sleep study formally and put on CPAP. 4. Hyperlipidemia, stable, continue statin. 5. Hypertension, stable, losartan tolerated well. 6. Chronic kidney disease, stable. 7. Diarrhea/loose stools with minimal bright red blood: Per patient reports. We have added fecal occult blood and we are rechecking labs this morning. Will monitor closely. 8. Nicotine dependence: The patient has been advised to quit smoking. Will continue nicotine cessation education. DISPOSITION: We are checking stool studies for C. difficile and for blood. If negative, he can likely go home either later this afternoon or tomorrow, if positive will treat accordingly. Dictated by TAO Duncan for Shantanu Scott MD cc: TAO Duncan Agree with above. The following is my own face to face assessment. Patient wheezing nearly resolved. abd nontender and bowel sounds normoactive. will check stool studies and if negative then will hopefully be able to discharge tomorrow. [facility]
[2018-07-04] MEDS: FLOMAX PO SCH (11:40)
[2018-07-04] MEDS: LASIX PO SCH (11:40)
[2018-07-04] MEDS: NICODERM PATCH TD PRN (14:21)
--- NOTE | 2018-07-04 21:59 | PULMONOLOGY PROGRESS NOTE ---
DATE: 07/04/2018 SUBJECTIVE: The patient reports he has increased sputum production, but is improving with mucolytics. He denies shortness of breath at rest. OBJECTIVE: Blood pressure 103/82, heart rate 91, respiratory rate 18, oxygen saturation 95% on 3 L per nasal cannula. HEENT: Pupils are equal and reactive. Oropharynx is clear. Neck is supple. Chest reveals markedly diminished breath sounds bilaterally with prolonged expiratory phase. Minimal wheezing present distally. Cardiac exam: S1, S2. Abdomen is soft. Extremities reveal minimal to trace edema. LABORATORY DATA: No new chemistries or CBC. IMPRESSION: A 52-year-old with: 1. Severe chronic obstructive pulmonary disease. 2. Severe coronary artery disease with ischemic cardiomyopathy. 3. Ongoing tobacco use. 4. Possible amphetamine use, which the patient denies. 5. Hypoxemic respiratory failure. RECOMMENDATIONS: 1. Continue bronchodilators as outlined in the initial consultation. 2. Continue oxygen at discharge if his saturation is less than 90% on room air. 3. Strongly encourage the patient to discontinue all non-prescribed drugs. cc: Mazin Juárez MD
[2018-07-05] MEDS: ZOFRAN IV PRN ×3 (02:38→13:22)
[2018-07-05] MEDS: DUONEB (A & A) INH SCH ×3 (03:24→11:25)
[2018-07-05] MEDS: PULMICORT INH SCH (07:42)
[2018-07-05] MEDS: FLOMAX PO SCH (08:24)
[2018-07-05] MEDS: CRESTOR PO SCH (08:25)
[2018-07-05] MEDS: ASPIRIN PO SCH (08:25)
[2018-07-05] MEDS: PLAVIX PO SCH (08:25)
[2018-07-05] MEDS: PREDNISONE PO SCH (08:25)
[2018-07-05] MEDS: COREG PO SCH (08:25)
[2018-07-05] MEDS: IMDUR PO SCH (08:25)
[2018-07-05] MEDS: COZAAR PO SCH (08:25)
[2018-07-05] MEDS: NEURONTIN PO SCH (08:26)
[2018-07-05] MEDS: LASIX PO SCH (08:26)
[2018-07-05] MEDS: MUCINEX PO SCH (08:26)
[2018-07-05] MEDS: NICODERM PATCH TD PRN (09:27)
[2018-07-05 11:15] VITALS: BP 84/56
[2018-07-05] MEDS ORDERED: PNEUMOVAX 23 IM ONE (14:13)
--- NOTE | 2018-07-05 22:19 | DISCHARGE SUMMARY ---
ADMISSION DATE: 07/02/2018 DISCHARGE DATE: 07/05/2018 DIAGNOSTIC DATA: Chest x-ray x2 with no acute process. DISCHARGE DIAGNOSES: 1. Chronic obstructive pulmonary disease with mild exacerbation. 2. Chronic systolic congestive heart failure. 3. Coronary artery disease. 4. Hypertension. 5. Tobacco. 6. Chronic kidney disease stage 3. 7. Hyponatremia. 8. Likely irritable bowel syndrome. HOSPITAL COURSE: The patient is a 52-year-old male with history of COPD, reportedly on oxygen at home; systolic congestive heart failure, with EF of 20%; coronary artery disease; hypertension; hyperlipidemia. He had recent hospitalization at [facility]. Reported he had continued shortness of breath. On initial evaluation he was noted to have no significant hypoxia, but was having some dyspnea and wheezing. He was thought to have some mild COPD exacerbation and possibly very slight volume overload, but BNP was similar to his previous baselines at 4000 and chest x-ray did not show any significant pulmonary edema. He was treated with steroids, nebulizer treatments and gentle diuresis. His home medications, which he had been largely noncompliant with, were restarted. We attempted to start him on losartan. He had previously been on lisinopril but stopped that because of cough; however, he developed mildly decreased blood pressure and some slight orthostatic symptoms with losartan. This was held briefly. After further review, it was elected to stop his Imdur and restart the losartan. The patient also complained of diarrhea, but after stool sample was ordered no further bowel movements were noted. The patient stated this has been an intermittent issue for quite some time. It was thought he might have an aspect of IBS, so Bentyl was started. The patient was counseled on the importance of medication compliance and tobacco cessation. On the day of discharge, the patient was saturating well on room air, breathing easily. His last labs had showed no leukocytosis, minimal anemia with a hemoglobin of 11.9, and chemistries showed stable CKD 3. DISCHARGE VITAL SIGNS: Temperature 98.1 degrees, pulse 88, respirations 22, O2 saturation 100% on room air. DISCHARGE DIET: Cardiac. DISCHARGE MEDICATIONS: Lasix 20 mg p.o. daily; atorvastatin 40 mg p.o. at bedtime; albuterol inhaler q.4 hours p.r.n.; aspirin 81 mg p.o. daily; Bentyl 10 mg p.o. t.i.d.; Coreg 25 mg p.o. b.i.d.; losartan 25 mg p.o. daily; Flomax 0.4 mg p.o. daily; gabapentin 600 mg p.o. b.i.d.; nicotine patch 21 mg daily; Protonix 40 mg p.o. daily; Plavix 75 mg p.o. daily; prednisone taper. FOLLOWUP AND PLAN: The patient is discharged home on adjusted CHF medications, Lasix, Coreg and losartan. Short steroid taper to finish treatment of mild COPD exacerbation. Follow up with PCP and Cardiology. Greater than 30 minutes spent arranging discharge and counseling the patient.
== END 2018-07-05 15:18 | disposition home or self-care (01) | DRG 291 ==
LOC: SUPCPDRO → ED 06:35 → SUATTDRO 12:37 → 3N 12:37
PROVIDERS: ATTEND Internal Medicine
CPT/HCPCS: 71010; 71045; 80053; 80101; 80301; 80307; 80324; 80345; 80346; 80353; 80358; 80361; 80365; 81001; 82607; 82805; 83735; 83880; 83992; 84436; 84443; 84484; 85025; 85610; 85730; 90732; 93005; 93010; 93306; 94640; 94761; 94799; 96374; 96375; 99285; A9270; C8929; G0431; G0434; G0479; G0480; J1940; J1956; J2405; J2930; J7506; J7512; Q9957

== ENCOUNTER 2018-09-02 14:00 | Observation (INO) ==
[2018-09-02] MEDS ORDERED: ASPIRIN PO ONE (14:31)
[2018-09-02] MEDS ORDERED: ASPIRIN PR ONE (14:31)
--- NOTE | 2018-09-02 14:54 | Diag Imaging Result Doc PS360 ---
EXAM: CHEST-2 VIEWS 09/02/2018 HISTORY: chest pain TECHNIQUE: AP and lateral chest COMMENT: There are sternotomy wires and anterior mediastinal surgical clips. There is a pacemaker on the left. There is some minimal platelike opacity in the area of the lingula which may be due to fibrosis. This is not changed significantly since 07/03/2018. There may be COPD. IMPRESSION: No evidence of acute disease. Electronically signed by Dakota Mittal 09/02/2018 2:52 PM
[2018-09-02] MEDS ORDERED: NS 1,000 ML IV ONE (14:57)
[2018-09-02] MEDS ORDERED: ZOFRAN IV ONE (14:57)
[2018-09-02] MEDS ORDERED: MORPHINE IV ONE (14:57)
[2018-09-02 15:08] LABS: BASO# 0.09 X1000 (0.0-0.2); BASO% 0.8 % (0.0-0.8); EOS# 0.69 X1000 (0.0-0.7); EOS% 5.9 % (0.0-10.0); HEMATOCRIT 38.4 % (42.0-52.0); HEMOGLOBIN 12.6 g/dL (14.0-18.0); IMM GRAN# 0.05 X1000 (0.0-0.04); IMM GRAN% 0.4 % (0.0-0.5); LYMPH# 1.88 X1000 (1.2-3.4); LYMPH% 16.1 % (20.5-51.1); MCH 31.7 PG (27-31); MCHC 32.8 g/dL (33-37); MCV 96.7 FL (81-99); MONO# 1.32 X1000 (0.11-0.59); MONO% 11.3 % (1.7-9.3); MPV 10.4 FL (7.4-10.4); NEUT# 7.64 X1000 (1.4-6.5); NEUT% 65.5 % (42.2-75.2); PLT 278 X1000 (130-400); RBC 3.97 XMIL (4.7-6.1); RDW 14.6 % (11.5-14.5); WBC 11.67 X1000 (4.8-10.8)
[2018-09-02 15:13] LABS: INR 0.89; PROTIME 12.8 Seconds (11.0-16.0)
[2018-09-02 15:14] LABS: PTT 29.7 Seconds (22.3-41.8)
[2018-09-02 15:34] LABS: ALB/GLOB RATIO 1.6; ALBUMIN 4.2 g/dL (3.5-5.0); CALCIUM 9.3 mg/dL (8.8-10.2); CREATININE 2.6 mg/dL (0.7-1.2); POTASSIUM 4.2 mmol/L (3.5-5.1); TOTAL BILIRUBIN 0.3 mg/dL (0.20-1.00); TOTAL PROTEIN 6.9 g/dL (6.3-8.3)
--- NOTE | 2018-09-02 18:13 | PROVIDER DOCUMENTATION ---
This chart was entered by Radha Sales Scribe, acting as scribe for Sunny Maldonado DO. HPI-Cardiac General - General Chief Complaint: Heart Alert Stated Complaint: DEFIBRILLATOR FIRED, DIZZY Time Seen by Provider: 09/02/18 14:38 Source: patient Allergies/Adverse Reactions: Patient Allergies Allergy/AdvReac Type Severity Reaction Status Date / Time tetracycline Allergy HIVES Verified 07/02/18 06:53 Home Medications: Home Medication List Medication Instructions Recorded Confirmed Last Taken Type Albuterol Sulfate [Proventil Hfa] 2 puff IH Q4HR PRN #1 hfa.aer.ad 12/28/17 07/02/18 03/27/18 09:30 Rx Aspirin 81 mg PO DAILY #30 chewtab 02/01/18 07/02/18 03/27/18 09:30 Rx Iron Carbonyl/Ascorbic Acid 1 ea PO BID #30 tab 02/01/18 07/02/18 03/27/18 09:30 Rx [Icar-C] Multivitamins/Minerals [Centrum 1 ea PO DAILY #30 tab 02/01/18 07/02/18 03/27/18 09:30 Rx Silver] Carvedilol [Coreg] 25 mg PO BID #60 tab 07/05/18 Unknown Rx Clopidogrel Bisulfate [Plavix] 75 mg PO DAILY #30 tab 07/05/18 Unknown Rx Dicyclomine [Bentyl] 10 mg PO TID PRN PRN #90 cap 07/05/18 Unknown Rx Furosemide [Lasix] 20 mg PO DAILY #30 tab 07/05/18 Unknown Rx Gabapentin [Neurontin] 600 mg PO BID #60 tab 07/05/18 Unknown Rx Losartan [Cozaar] 25 mg PO DAILY #30 tab 07/05/18 Unknown Rx Nicotine Patch [Nicoderm Patch] 21 mg TD DAILY PRN PRN #42 07/05/18 Unknown Rx patch.td24 Pantoprazole Sodium 40 mg PO DAILY #30 tablet.dr 07/05/18 Unknown Rx Prednisone 10 mg PO DAILY #7 tab.ds.pk 07/05/18 Unknown Rx ROSUVAstatin [Crestor] 40 mg PO QHS #30 tab 07/05/18 Unknown Rx Tamsulosin [Flomax] 0.4 mg PO DAILY #30 cap 07/05/18 Unknown Rx - History of Present Illness-Cardiac Nature of Presenting Problem: 52 year old male presents to the ER via EMS after defibrillator fired this morning. Pt states immediately after the pain was so intense he vomited and has been in pain since. Pt states he has left side weakness due to stroke and is having difficulty speaking due to nervousness. Denies any other symptoms. Location: reports: central Quality of Pain: reports: sharp, stabbing Onset/Duration: this morning Timing: still present Context/Activities at Onset: reports: other (defibrillator fired) Prior Chest Pain/Cardiac Workup: reports: cardiac cath Associated Symptoms: reports: back pain, nausea, shortness of breath, vomiting Review of Systems - Adult - REVIEW OF SYSTEMS - ADULT Constitutional: denies: chills, fever Eyes: reports: no symptoms reported Ears, Nose, Mouth & Throat: reports: no symptoms reported Cardiovascular: reports: chest pain, palpitations Respiratory: reports: shortness of breath, wheezing Gastrointestinal: reports: nausea, vomiting Genitourinary: reports: no symptoms reported Musculoskeletal: reports: no symptoms reported Integumentary: reports: no symptoms reported Neurological: reports: no symptoms reported Psychiatric: reports: no symptoms reported Endocrine: reports: no symptoms reported Hematologic/Lymphatic: reports: no symptoms reported Allergic/Immunologic: reports: no symptoms reported All Other Systems: Reviewed and Negative Past History - Adult - PAST MEDICAL HISTORY-ADULT Review of Records: reports: Nursing Assessment Review, Medications Reviewed Major Childhood Illnesses: reports: denies history Cardiovascular: reports: CAD, HTN, hyperlipidemia, [place] Respiratory: reports: asthma, COPD Gastrointestinal: reports: denies history Obstetrical/Gynecological: reports: denies history Genitourinary: reports: kidney disease Musculoskeletal: reports: denies history Neurological: reports: CVA, Seizures/Epilepsy Psychiatric: reports: denies history Endocrine/Immune: reports: denies history Other Conditions: reports: denies history - PRIOR SURGERIES/PROCEDURES Surgical/Procedure History: reports: CABG, orthopedic (extremity) (right hand) - IMMUNIZATION STATUS Childhood Immunizations: See Nurse Assessment Flu Vaccine: See Nurse Assessment - FAMILY HISTORY Family History: reviewed, not pertinent Physical Exam-General - PHYSICAL EXAM-ADULT Initial Vital Signs Reviewed: Yes - CONSTITUTIONAL General Appearance: alert, moderate distress - EYES Eyes: PERRL/EOMI, pink conjunctivae - HEAD, EARS, NOSE, MOUTH & THROAT HENMT: dental decay - RESPIRATORY Respiratory: decreased breath sounds - CARDIOVASCULAR Cardiovascular: regular rate, rhythm - GASTROINTESTINAL (ABDOMEN) Abdominal Exam: soft - MUSCULOSKELETAL Back Exam: CVA tenderness Extremity: normal range of motion - SKIN Integumentary: normal color, warm/dry - NEUROLOGIC Neurologic: grossly normal, no motor/sensory deficits - PSYCHIATRIC Psych/Mental Status: normal mood/affect, normal thought content, normal thought process, oriented x 3 - HEART Score HEART Score: History: Highly Suspicious HEART Score: ECG: Non-Specific Repolarization Disturbance/LBBB/PM HEART Score: Age: 45-65 Years HEART Score: Risk Factors for Atherosclerotic Disease: > or = 3 Risk Factors or History of Atherosclerotic Disease HEART Score: Troponin: < or = Normal Limit Total HEART Score:: 6 Progress - PLAN OF CARE/RESULTS Progress/Plan/Lab Results: Vital Signs - 8 hr 09/02/18 14:05 09/02/18 14:10 09/02/18 14:16 Pulse Rate 93 H 92 H Respiratory Rate 17 19 Blood Pressure 130/79 130/79 O2 Sat by Pulse Oximetry 100 100 100 09/02/18 14:20 09/02/18 14:30 09/02/18 14:40 Pulse Rate 91 H 93 H 92 H Respiratory Rate 19 20 16 Blood Pressure O2 Sat by Pulse Oximetry 100 100 100 09/02/18 14:51 09/02/18 14:54 09/02/18 14:55 Pulse Rate 153 H 87 90 Respiratory Rate 23 21 21 Blood Pressure 132/102 90/80 O2 Sat by Pulse Oximetry 99 99 100 09/02/18 15:00 09/02/18 15:01 09/02/18 15:10 Pulse Rate 87 85 84 Respiratory Rate 21 25 H 19 Blood Pressure 109/87 O2 Sat by Pulse Oximetry 100 100 100 09/02/18 15:20 09/02/18 15:30 09/02/18 15:33 Pulse Rate 87 87 84 Respiratory Rate 18 16 20 Blood Pressure 93/62 O2 Sat by Pulse Oximetry 100 100 100 09/02/18 15:40 09/02/18 15:46 09/02/18 15:50 Pulse Rate 86 82 85 Respiratory Rate 23 20 20 Blood Pressure 89/42 O2 Sat by Pulse Oximetry 100 100 100 09/02/18 15:53 09/02/18 16:00 09/02/18 16:02 Pulse Rate 89 87 80 Respiratory Rate 22 23 22 Blood Pressure 124/89 102/58 O2 Sat by Pulse Oximetry 100 99 100 09/02/18 16:10 09/02/18 16:17 09/02/18 16:20 Pulse Rate 78 79 78 Respiratory Rate 18 20 17 Blood Pressure 131/97 O2 Sat by Pulse Oximetry 100 100 100 09/02/18 16:30 09/02/18 16:31 Pulse Rate 79 75 Respiratory Rate 13 21 Blood Pressure 115/76 O2 Sat by Pulse Oximetry 100 100 Laboratory Results - last 24 hr 09/02/18 09/02/18 09/02/18 14:20 14:20 14:20 WBC 11.67 H RBC 3.97 L Hgb 12.6 L Hct 38.4 L MCV 96.7 MCH 31.7 H MCHC 32.8 L RDW Std Deviation 14.6 H Plt Count 278 MPV 10.4 Immature Gran % (Auto) 0.4 Neut % (Auto) 65.5 Lymph % (Auto) 16.1 L [place] % (Auto) 11.3 H Eos % (Auto) 5.9 Baso % (Auto) 0.8 Immature Gran # (Auto) 0.05 H Neut # (Auto) 7.64 H Lymph # (Auto) 1.88 [place] # (Auto) 1.32 H Eos # (Auto) 0.69 Baso # (Auto) 0.09 PT INR PTT (Actin FS) Sodium 142 Potassium 4.2 Chloride 106 Carbon Dioxide 20 L Anion Gap 16 BUN 37 H Creatinine 2.6 H Estimated GFR/1.73 m2 26 BUN/Creatinine Ratio 14 Glucose 99 Calculated Osmolality 292 Calcium 9.3 Total Bilirubin 0.30 AST 13 ALT 8 L Alkaline Phosphatase 116 Creatine Kinase 42 Troponin T [place] Pept [address]308 H Total Protein 6.9 Albumin 4.2 Globulin 2.7 Albumin/Globulin Ratio 1.6 09/02/18 09/02/18 14:20 14:20 WBC RBC Hgb Hct MCV MCH MCHC RDW Std Deviation Plt Count MPV Immature Gran % (Auto) Neut % (Auto) Lymph % (Auto) [place] % (Auto) Eos % (Auto) Baso % (Auto) Immature Gran # (Auto) Neut # (Auto) Lymph # (Auto) [place] # (Auto) Eos # (Auto) Baso # (Auto) PT 12.8 INR 0.89 PTT (Actin FS) 29.7 Sodium Potassium Chloride Carbon Dioxide Anion Gap BUN Creatinine Estimated GFR/1.73 m2 BUN/Creatinine Ratio Glucose Calculated Osmolality Calcium Total Bilirubin AST ALT Alkaline Phosphatase Creatine Kinase Troponin T 0.029 Gji-W-Obkzcinelwz Pept Total Protein Albumin Globulin Albumin/Globulin Ratio Orders Category Date Time Status Cardiac Monitoring DIRECTED Care 09/02/18 14:32 Active Oxygen Therapy- ED Nursing DIRECTED Care 09/02/18 14:32 Active Saline Loc NOW Care 09/02/18 14:32 Active CHEST-2 VIEWS [RAD] Stat Exams 09/02/18 14:32 Completed CBC WITH ELECTRONIC DIFF [HEME] Stat Lab 09/02/18 14:20 Completed CK PROFILE [SP CHEM] Stat Lab 09/02/18 14:20 Completed CK PROFILE [SP CHEM] Stat Lab 09/02/18 16:59 Received COMPREHENSIVE METABOLIC PANEL [CHEM] Stat Lab 09/02/18 14:20 Completed PRO B-NATRIURETIC PEPTIDE Stat Lab 09/02/18 14:20 Completed PROTIME WITH INR [COAG] Stat Lab 09/02/18 14:20 Completed PTT [COAG] Stat Lab 09/02/18 14:20 Completed TROPONIN T Stat Lab 09/02/18 14:20 Completed TROPONIN T Stat Lab 09/02/18 17:43 Received 0.9% Sodium Chloride Inj [Ns] 1,000 ml Med 09/02/18 14:57 Discontinued IV 999 mls/hr Aspirin Med 09/02/18 14:31 Discontinued 325 mg PO NOW ONE Morphine Med 09/02/18 14:57 Discontinued 4 mg IV NOW ONE Ondansetron [Zofran] Med 09/02/18 14:57 Discontinued 4 mg IV NOW ONE CP/SOB/Palp >45 yrs of Age Stat Oth 09/02/18 14:31 Ordered EKG [EKG] Stat Ther 09/02/18 14:32 Ordered EKG [EKG] Stat Ther 09/02/18 16:59 Ordered Result Diagrams: 09/02/18 14:20 09/02/18 14:20 - EKG 1 Time of EKG reading by physician:: 14:58 EKG Read and Signed by:: Sunny Maldonado EKG Interpretation (*Must complete 3 of following elements*): Abnormal Rate: 96 Rhythm: normal sinus rhythm [place]: left (possible left atrial enlargement) ST Wave: non-specific ST changes (ST & T wave abnormality, consider lateral ischemia) Comments: inferior infarct, age undetermined 2 Time of EKG reading by physician:: 17:51 EKG Read and Signed by:: Sunny Maldonado EKG Interpretation (*Must complete 3 of following elements*): Abnormal Rate: 83 Rhythm: sinus rhythm with occasional premature ventricular complexes [place]: left (possible left atrial enlargement) ST Wave: non-specific ST changes (ST&T wave abnormality, consider lateral ischemia) Comments: cannot rule out anterior infarct, age undetermined - XRAY 1 XRAY Study: Chest Impression: Normal, See EMR Report (EXAM: CHEST-2 VIEWS 09/02/2018 HISTORY: chest pain TECHNIQUE: AP and lateral chest COMMENT: There are sternotomy wires and anterior mediastinal surgical clips. There is a pacemaker on the left. There is some minimal platelike opacity in the area of the lingula which may be due to fibrosis. This is not changed significantly since 07/03/2018. There may be COPD. IMPRESSION: No evidence of acute disease.) XRAY Interpretation: per radiologist - CONSULTS/PCP/HOSPITALIST Notification #1 *Consult/PCP/Hospitalist*: [place] Time Discussed: 18:09 (admit to Dr Maldonado) Departure - Departure Date of Disposition Decision: 09/02/18 Time of Disposition Decision: 18:10 DIAGNOSIS: CHF (congestive heart failure), COPD (chronic obstructive pulmonary disease) Disposition: ADMITTED INPATIENT 09 Certified Medical Emergency: Emergent Condition: Fair Referrals and Follow-Ups: None,PCP [Primary Care Provider] - - Critical Care Note This patient required my direct & personal management of CC.: No Attestation - Physician/ RANDY Attestation Patient care was provided by Advanced Practice Provider:: No The physician spent face to face time with patient:: Yes Advanced Practice Provider documentation review:: Supervising physician onsite and consulted in the evaluation and care of this patient. The physician did have a face to face encounter with the patient. This chart was documented by the indicated scribe, (Radha Sales, Kit) and accurately reflects the services I performed and decisions made by me, Sunny Maldonado, DO, as attested by the provider's signature.
[2018-09-02] MEDS ORDERED: TYLENOL PO PRN (18:35)
[2018-09-02] MEDS ORDERED: DUONEB (A & A) INH PRN (18:36)
[2018-09-02] MEDS ORDERED: VENTOLIN HFA INH PRN (18:36)
[2018-09-02] MEDS ORDERED: LASIX IV SCH (18:45)
[2018-09-02] MEDS: DUONEB (A & A) INH SCH ×2 (19:28→23:53)
--- NOTE | 2018-09-02 20:00 | HISTORY AND PHYSICAL ---
PRIMARY CARE PHYSICIAN: None. CHIEF COMPLAINT: Chest pain. HISTORY OF PRESENT ILLNESS: Mr. Nash is a 52-year-old male well known to our service with a history of COPD, on home O2, ischemic cardiomyopathy, systolic heart failure, nicotine dependence, CKD 3, medical noncompliance, who presents with chest pain that began abruptly today. He states he took a shower earlier today and became dizzy, he got out of the shower and sat down on the toilet at which time he states that his pacemaker fired and it felt like "getting kicked in the chest by a mule." Since that time, his chest has been sore but has not had any increasing anginal type symptoms. He has not had any more of the dizziness that he felt in the shower. He does report chronic shortness of breath and he does report some mild increase of chest pain when he takes his trash out to the dumpster. Otherwise, he has not had any fever or chills. No overt abdominal pain. No diarrhea. No dysuria. No lower extremity edema. He came to the ER for evaluation. In the ER labs were drawn and found to be unremarkable from his baseline. Creatinine 2.6 with a proBNP of 10,000. He had minimal elevation of white count at 11.6. His EKG showed sinus rhythm with nonspecific ST and T changes and chest x-ray did not show any acute changes from previous. There is minimal plate-like opacity in the area of the lingula. Overall, his vital signs are stable. He will be admitted for observation status. PAST MEDICAL HISTORY: 1. Ischemic cardiomyopathy. 2. Coronary artery disease. 3. Systolic heart failure, EF 20% to 25%. 4. COPD, on home O2. 5. Hypertension. 6. CKD 3. 7. PAD. 8. History of stroke. 9. Nicotine dependence. 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 PAST SURGICAL HISTORY: CABG in 2002, he had a mammary artery to the LAD. He has had coronary stenting to the LAD and AICD implantation. He has had right hand surgery and knee replacement. SOCIAL HISTORY: He is . He is disabled. He lives in [place] in a hotel He smokes a pack a day. Denies drug or alcohol use but there is question of history of amphetamine abuse. HOME MEDICATIONS: Yet been compiled by the nursing staff. DISCHARGE MEDICATIONS: On 07/05/2018 - Coreg 25 mg twice a day, Lasix 20 mg daily, nicotine patch 21 mg daily, prednisone 10 mg taper, Cozaar 25 mg daily, dicyclomine 10 mg three times a day as needed, Albuterol HFA two puffs every four hours as needed, aspirin 81 mg daily, Icar C one daily, multivitamin one daily, Flomax 0.4 mg daily, Neurontin 600 mg p.o. twice a day, Plavix 75 mg daily, Crestor 40 mg at bedtime, Protonix 40 mg daily. ALLERGIES: Tetracycline. REVIEW OF SYSTEMS: A 14-point review of systems was obtained and found to be negative with the exception of the HPI. PHYSICAL EXAMINATION: VITAL SIGNS: Blood pressure 128/80, heart rate 92, respiratory rate 13, O2 saturation 100% on nasal cannula at 2 L. Temperature not recorded. GENERAL: This is a disheveled appearing, chronically ill, 52-year-old male lying in hospital bed in no acute distress. NEUROLOGICAL: He is oriented. Follows commands. No focal deficits. HEENT: Head is atraumatic and normocephalic. Pupils are equal, round and reactive to light. Oral mucosa is moist. NECK: Trachea is midline. There is no JVD. CHEST: Diminished at the bases without wheezing. CARDIOVASCULAR: Regular rate and rhythm. S1 and S2 are noted. GASTROINTESTINAL: Soft. Nondistended and nontender. Bowel sounds are active. EXTREMITIES: No edema. Pulses are 1+ bilaterally. DIAGNOSTIC DATA: Chest x-ray shows pacemaker on the left; minimal plate-like opacity in the lingula, may be due to fibrosis, no changes since previous x-ray. EKG with sinus rhythm. Nonspecific ST and T changes diffusely. WBC 11.67, hemoglobin 12.6, hematocrit 38.4, platelet count 278. INR 0.89. Sodium 142, potassium 4.2, chloride 106, CO2 20, anion gap 16, BUN 37, creatinine 2.6, glucose 99. LFTs negative. Troponin negative x2 sets. proBNP 10,056. Albumin 4.2. ASSESSMENT AND PLAN: 1. Chest pain with reported firing of the defibrillator this morning: Will admit him for observation status. Trend his enzymes. Continue aspirin and Plavix. Consult Cardiology. Monitor telemetry. 2. Chronic systolic heart failure/ischemic cardiomyopathy: The patient is not overtly volume overloaded. We will change his Lasix to 40 mg intravenously daily. Follow strict intake and output and daily weights. He does report some increasing shortness of breath. 3. Chronic obstructive pulmonary disease: He is on home oxygen. No signs of exacerbation at this time. Will continue breathing treatments, add as needed nebulizers and continue oxygen. 4. Hypertension: Continue home medications. Stable. 5. Nicotine dependence: We have advised the patient to quit smoking. Will write a nicotine patch. Continue cessation education. 6. Chronic kidney disease stage 3: Baseline creatinine noted. Will continue his angiotensin receptor tarik and monitor daily creatinine. 7. Deep venous thrombosis prophylaxis with sequential compression devices. Further recommendations to follow. Dictated by TAO Duncan for Simba Maldonado MD cc: TAO Duncan MD
[2018-09-02] MEDS: COREG PO SCH (20:57)
[2018-09-02] MEDS: NICODERM PATCH TD SCH (20:58)
[2018-09-02] MEDS: LASIX IV SCH (20:58)
[2018-09-02] MEDS ORDERED: CRESTOR PO SCH (21:00)
[2018-09-02 21:40] LABS: URINE SOURCE CLEAN CATCH
[2018-09-02 21:48] LABS: BILIRUBIN URINE NEGATIVE (NEGATIVE); BLOOD URINE NEGATIVE (NEGATIVE); COLOR YELLOW; GLUCOSE URINE NEGATIVE (NEGATIVE); KETONE URINE NEGATIVE (NEGATIVE); LEUKOCYTES URINE NEGATIVE (NEGATIVE); NITRITE URINE NEGATIVE (NEGATIVE); PROTEIN URINE TRACE mg/dL (NEGATIVE); SP GRAVITY URINE 1.007; TURBIDITY URINE CLEAR (CLEAR); UROBILINOGEN URINE NORMAL (NORMAL)
[2018-09-02 21:49] LABS: UR EPITHELIAL CELLS <10 /HPF (<10); URINE BACTERIA NEGATIVE /HPF; URINE RBC <10 /HPF (<10); URINE WBC <10 /HPF (<10)
[2018-09-02 22:36] LABS: UR AMPHETAMINES QUAL NONE DETECTED (NONE DETECT); UR BARBITUATES QUAL NONE DETECTED (NONE DETECT); UR BENZODIAZEPIN QUAL NONE DETECTED (NONE DETECT); UR CANNABINOIDS QUAL NONE DETECTED (NONE DETECT); UR COCAINE QUAL NONE DETECTED (NONE DETECT); UR METHADONE QUAL NONE DETECTED (NONE DETECT); UR OPIATES QUAL PRESUMPTIVE POSITIVE (NONE DETECT); UR OXYCODONE QUAL NONE DETECTED (NONE DETECT); UR PCP QUAL NONE DETECTED (NONE DETECT)
[2018-09-02] MEDS ORDERED: REMERON PO SCH (23:15)
[2018-09-02] MEDS: NEURONTIN PO SCH (23:23)
[2018-09-03] MEDS: DUONEB (A & A) INH SCH ×3 (03:42→15:51)
[2018-09-03] MEDS ORDERED: PROTONIX PO SCH (07:00)
[2018-09-03 07:14] LABS: HEMATOCRIT 34.4 % (42.0-52.0); HEMOGLOBIN 10.7 g/dL (14.0-18.0); MCH 31.7 PG (27-31); MCHC 31.1 g/dL (33-37); MCV 101.8 FL (81-99); RBC 3.38 XMIL (4.7-6.1); RDW 14.7 % (11.5-14.5); WBC 8.17 X1000 (4.8-10.8)
--- NOTE | 2018-09-03 07:17 | EKG Report ---
Test Performed on : 09/03/2018 07:02:26 AM Test Reason : chest pain Blood Pressure : / mmHG Vent. Rate : 075 BPM Atrial Rate : 075 BPM P-R Int : 146 ms QRS Dur : 114 ms QT Int : 448 ms P-R-T Axes : 073 -46 148 degrees QTc Int : 500 ms Normal sinus rhythm. Possible Left atrial enlargement Left axis deviation Cannot rule out Anterior infarct (cited on or before 02-SEP-2018) ST & Marked T wave abnormality, consider lateral ischemia Prolonged QT Abnormal ECG When compared with ECG of 02-SEP-2018 17:47, (Unconfirmed) premature ventricular complexes. are no longer present QRS axis shifted left T wave inversion more evident in Anterolateral leads Confirmed by Jose BECK, Sg Colby ([id number]) on 09/03/2018 9:28:35 AM
[2018-09-03 07:44] LABS: CALCIUM 8.7 mg/dL (8.8-10.2); CREATININE 1.9 mg/dL (0.7-1.2); MAGNESIUM 2.1 mg/dL (1.5-2.7)
--- NOTE | 2018-09-03 07:45 | EKG Report ---
Test Performed on : 09/02/2018 5:47:21 PM Test Reason : chest pain Blood Pressure : / mmHG Vent. Rate : 083 BPM Atrial Rate : 083 BPM P-R Int : 144 ms QRS Dur : 116 ms QT Int : 408 ms P-R-T Axes : 073 010 144 degrees QTc Int : 479 ms Sinus rhythm. with occasional premature ventricular complexes. Possible Left atrial enlargement Cannot rule out Anterior infarct , age undetermined ST & T wave abnormality, consider lateral ischemia Abnormal ECG When compared with ECG of 02-SEP-2018 14:06, (Unconfirmed) premature ventricular complexes. are now present Unconfirmed Result
--- NOTE | 2018-09-03 08:02 | EKG Report ---
Test Performed on : 09/02/2018 2:06:17 PM Test Reason : chest pain Blood Pressure : / mmHG Vent. Rate : 096 BPM Atrial Rate : 096 BPM P-R Int : 134 ms QRS Dur : 110 ms QT Int : 374 ms P-R-T Axes : 068 038 142 degrees QTc Int : 472 ms Normal sinus rhythm. Possible Left atrial enlargement Inferior infarct (cited on or before 02-JUL-2018) ST & T wave abnormality, consider lateral ischemia Abnormal ECG When compared with ECG of 02-JUL-2018 15:07, premature ventricular complexes. are no longer present Unconfirmed Result
[2018-09-03] MEDS: COREG PO SCH (08:18)
[2018-09-03] MEDS: LASIX IV SCH (08:18)
[2018-09-03] MEDS: NICODERM PATCH TD SCH (08:19)
[2018-09-03] MEDS: NEURONTIN PO SCH (08:19)
[2018-09-03] MEDS ORDERED: FLOMAX PO SCH (09:00)
[2018-09-03] MEDS ORDERED: COZAAR PO SCH (09:00)
[2018-09-03] MEDS ORDERED: PLAVIX PO SCH (09:00)
[2018-09-03] MEDS ORDERED: ASPIRIN PO SCH (09:00)
--- NOTE | 2018-09-03 14:37 | CARDIOLOGY CONSULTATION ---
DATE: 09/03/2018 HISTORY OF PRESENT ILLNESS: A 52-year-old, gentleman with known COPD, ischemic cardiomyopathy, coronary artery bypass grafting. Was admitted. He was in the shower, following which he became dizzy. He sat down and he said that he had his AICD fire and had some chest discomfort. He came to the emergency room, was admitted. He is comfortable at this present time. Denies any chest pain. There is no history of palpitations. There is no history of dizziness or syncope. REVIEW OF SYSTEM: A 14-point review of systems was done. GI System: There is no history of nausea, vomiting, or diarrhea. There is no history of hematemesis or melena. Central Nervous System: No focal weakness to suggest a CVA or TIA. Genitourinary System: There is no dysuria or hematuria. PAST MEDICAL HISTORY: 1. Coronary artery disease, coronary artery bypass grafting in 2002 with a CRUZ to left anterior descending artery. 2. [employer] AICD device placed. 3. Systolic heart failure. Ejection fraction of 20-25%. 4. COPD. 5. Hypertension. 6. Renal insufficiency. 7. Peripheral vascular disease. 8. History of stroke. 9. Nicotine dependence. 10. Last cardiac catheterization was in [place] in September 2018. CRUZ to left anterior descending artery was patent. RCA was nondominant. Circumflex stent was patent. Medical management recommended at that time. HOME MEDICATIONS: Include Coreg 25 b.i.d., Lasix 20, prednisone 10 - on a tapered dose, Cozaar 25, dicyclomine 10 mg as needed, inhalers, aspirin 81 mg a day, Icar C, Flomax 0.4, Neurontin 600, Plavix 75, Crestor 40, Protonix 40. ALLERGIES: Allergic to tetracycline. PHYSICAL EXAMINATION: Vital Signs: Blood pressure was 120/80. Cardiovascular System: Normal jugular venous pressure. There was no thyromegaly. There was no carotid bruit. First and second heart sounds were heard. There was no S3 gallop. Respiratory System: Normal air entry. There were no crepitations or rhonchi. Abdomen: Soft, nontender. There was no guarding or rigidity. Bowel sounds were heard. Central Nervous System: Alert, was moving all 4 extremities. Examination of extremities revealed no pedal edema. ASSESSMENT AND PLAN: 1. Mr. Tk Nahs is a 52-year-old, gentleman with coronary artery disease, status post coronary artery bypass grafting and stent placement in the past. Recent cardiac catheterization, 08/04/2018, revealed left internal mammary artery to left anterior descending artery was patent. Circumflex stent was patent. Right coronary artery was nondominant. Ejection fraction 20-25%. 2. Hypertension. 3. Chronic obstructive pulmonary disease. Comes with complaints of having felt weak and automatic implantable cardioverter defibrillator firing. LABORATORY EXAMINATION: Revealed a sodium 143, potassium 4.0, BUN 31, creatinine 1.6. Hemoglobin 10.7, hematocrit 34. Magnesium was 2.1. AICD was interrogated and there were no shocks delivered. Currently, the patient is stable. We would recommend continuing with his home medications and [facility] 3 weeks. cc: Leroy Mendoza MD
[2018-09-03 17:00] VITALS: BP 113/62
--- NOTE | 2018-09-04 13:10 | DISCHARGE SUMMARY ---
ADMISSION DATE: 09/02/2018 DISCHARGE DATE: 09/03/2018 DISPOSITION: Home. FOLLOWUP: Leroy Mendoza MD. CONSULTATION DURING THIS ADMISSION: Cardiology was consulted. The patient was seen by Dr. Mendoza. INVASIVE PROCEDURES DONE DURING THIS ADMISSION: None. However, the patient's AICD device was interrogated and it did not show any firing. ADMISSION DIAGNOSES: 1. Chest pain reported to be as a result of automatic implantable cardioverter-defibrillator firing. 2. History of congestive heart failure secondary to ischemic cardiomyopathy. The patient is euvolemic. 3. History of chronic obstructive pulmonary disease. 4. Hypertension. 5. Chronic kidney disease stage 3A. DISCHARGE DIAGNOSES: 1. Chest pain reported to be as a result of automatic implantable cardioverter-defibrillator firing. 2. History of congestive heart failure secondary to ischemic cardiomyopathy. The patient is euvolemic. 3. History of chronic obstructive pulmonary disease. 4. Hypertension. 5. Chronic kidney disease stage 3A. DISCHARGE MEDICATIONS: 1. Aspirin 81 mg daily. 2. Carvedilol 25 b.i.d. 3. Furosemide 20 mg daily. 4. Crestor 40 mg daily. 5. Flomax 0.4 mg daily. 6. Gabapentin 600 b.i.d. 7. Clopidogrel 75 mg daily. 8. Pantoprazole 40 mg daily. 9. Remeron 30 mg p.o. at bedtime. 10. Isosorbide mononitrate 1 tablet daily. 11. Losartan 25 mg p.o. daily. PRESENTING COMPLAINT: Chest pain. HISTORY OF PRESENTING COMPLAINT: Mr. Nash is a 52-year-old gentleman who has been in and out of this hospital. Has been also in multiple hospital in the vicinity. I have been told by Cardiology that Mr. Nash was recently seen in a [place] hospital, and even a left heart catheterization was done. Has recently also been seen in [place]. Came to this hospital because he said he felt his AICD fired, and he has been having chest discomfort. The patient was admitted for further medical care. HOSPITAL COURSE: Mr. Nash was admitted on the medical floor under telemetry monitoring. Chest pain resolved. Cardiac enzymes were unremarkable. Cardiology was consulted. The device was ultimately interrogated, and it did not show any time that it fired. Mr. Nash today feels a lot better. He is completely asymptomatic. He is therefore being discharged. He has been [facility] 2 to 3 weeks. All the discharge instructions discussed with him. He voiced understanding. PHYSICAL EXAMINATION ON DISCHARGE: At the time of the discharge, Mr. Nash's vitals were blood pressure 114/68, pulse of 71, respiration is 13, temperature is 98.6 degrees. The physical exam is unremarkable. TIME SPENT FOR DISCHARGE: 35 minutes. cc: MD Leroy Gongora MD
== END 2018-09-03 19:13 | disposition home health service (06) ==
LOC: SUPCPDRO → ED 14:00 → EDIPHOLD 18:50 → INTOOBSV 18:50 → 3N 20:08
PROVIDERS: ATTEND Internal Medicine
CPT/HCPCS: 71020; 71046; 80048; 80053; 80101; 80301; 80307; 80324; 80345; 80346; 80353; 80358; 80361; 80365; 81001; 82550; 83735; 83880; 83992; 84484; 85025; 85027; 85610; 85730; 93005; 93010; 94640; 94760; 94761; 96374; 96375; 99285; A9270; G0431; G0434; G0479; G0480; J1940; J2270; J2405; J7030